=== PATIENT | male | born 1960 | race Caucasian/White ===

== ENCOUNTER 2016-08-09 08:00 | Inpatient (IN) | payer OTHER ==
[~2016-08-09] VITALS: Ht 182.9 cm; Wt 119.8 kg
[2016-08-09] MEDS ORDERED: FUROSEMIDE20 MG PO (13:46)
[2016-08-09] MEDS ORDERED: ZESTORETIC 20/21 TAB PO (13:46)
[2016-08-09] MEDS ORDERED: BAYER ASPIRIN325 MG PO (13:47)
[2016-08-09] MEDS ORDERED: GLUCOPHAGE500 MG PO (13:48)
[2016-08-09 13:55] VITALS: BP 153/85; BMI 37.4
--- NOTE | 2016-08-09 14:39 | NUR ---
SPOKE WITH DR TAVERA, EXPLAINED TO HIM WHAT IS GOING ON WITH PATIENTS VISION. HE STATED THAT WITH THE WAY IT IS PRESENTING IT IS AN EYE THING AND NOT A BRAIN THING. HIS RECOMMENDATION WAS THAT AN OPTHAMOLOGIST BE CONSULTED.
[2016-08-09 15:01] LABS: BASOPHILS 0.2 % (0.0-2.0); EOSINOPHILS 0.2 % (0-7); HEMATOCRIT 57.3 % (42.0-54.0); IMMATURE GRANULOCYTES 0.4 % (0-5); LYMPHOCYTES 16.4 % (15-50); MCHC 34.9 g/dL (31.0-37.0); MCV 88.8 fL (80.0-100.0); MEAN PLATELET VOLUME 10.1 fL (7.4-10.4); MONOCYTES 3.9 % (2-11); NEUTROPHILS 78.9 % (40-80); PLATELET COUNT 205 10x3/uL (130-400); RBC 6.45 10x6/uL (4.20-6.10); RDW 16.3 % (11.5-14.5); WBC 12.9 10x3/uL (4.8-10.8)
[2016-08-09 15:22] LABS: ALBUMIN 3.5 g/dL (3.4-5.0); ANION GAP 12.8 mmol/L (8-16); BILIRUBIN - TOTAL 0.5 mg/dL (0.2-1.3); CALCIUM 9.5 mg/dL (8.5-10.1); CARBON DIOXIDE 30.4 mmol/L (21.0-32.0); CREATININE - SERUM 1.2 mg/dL (0.6-1.3); POTASSIUM - SERUM 4.2 mmol/L (3.5-5.1); PROTEIN - SERUM 6.8 g/dL (6.4-8.2)
--- NOTE | 2016-08-09 16:55 | NUR ---
PATIENTS BROUGHT A DIFFUSER FROM HOME AND HAS IT PLUGGED INTO THE WALL. EXPLAINED THAT THOSE WERE NOT ALLOWED HERE IN THE HOSPITAL. SHE GOT UPSET, QUESTIONING WHY HER COMPUTER WAS BUT THE DIFFUSER WAS NOT. EXPLAINED THAT I DID NOT MAKE THE RULES, I JUST NEEDED TO INFORCE THEM. EXPLAINED THAT I WOULD BE GLAD TO HAVE ENGINEERING COME UP AND TALK WITH HER ABOUT IT. SHE SLAMMED HER COMPUTER CLOSED AND THEN SLAMMED IT DOWN ON THE COUNTER BY THE SINK. JUST TO NOTE, THE SMELL COMING OUT OF THE DIFFUSER IS VERY NAUSEATING. THE TECH FROM MRI WAS NOT EVEN ABLE TO STAY IN THE ROOM TO GET THE PATIENT READY FOR TRANSPORT SECONDARY TO THE SMELL. THIS SITUTATION WAS EXPLAINED TO THE TERRAZZO TILE SETTER OPAL PORTILLO.
--- NOTE | 2016-08-09 19:30 | NUR ---
ASSESSMENT COMPLETE, RESP UNLAB RT HAND SL INTACT WITH NO R/S NOTED AT SITE. ACTIVITY RENE. UP AD PADMAJA. HOME DIFFUSOR NOT PLUGGED IN AT THIS TIME. CO PAT BUT DOES NOT WANT PAIN MEDICATION. HOB UP SR UP X2, C/L IN REACH. AT BEDSIDE FOR NIGHT. WANTING TO TALK TO BUSINESS LAWYER, INFORMATION PASSED ON TO JUANITO KRAUS COAGULATION OPERATOR. CONTINUE TO MONITOR.
--- NOTE | 2016-08-09 19:45 | NUR ---
RECEIVED NEW ORDERS FOR S/S INSULIN AND TESSALON PEARLS FOR COUGHING.
[2016-08-09 20:53] VITALS: BP 158/83
--- NOTE | 2016-08-09 21:55 | NUR ---
FSBS"164" REFUSING S/S INSULIN, TESSALON MARIAJOSE 100MG GIVEN FOR C/O COUGHING. CONTINUE TO AWAIT YARDER PUNCHER. C/L IN REACH.
[2016-08-10 00:54] VITALS: BP 162/72
--- NOTE | 2016-08-10 04:05 | NUR ---
EYES CLOSED, RESP EVEN AND UNLAB WITH NO S/S OF ACUTE DISTRESS NOTED. C/L IN REACH.
[2016-08-10 05:34] VITALS: BP 169/93
[2016-08-10 06:10] LABS: BASOPHILS 0.2 % (0.0-2.0); EOSINOPHILS 0.6 % (0-7); HEMATOCRIT 56.2 % (42.0-54.0); HEMOGLOBIN 19.6 g/dL (13.5-17.5); IMMATURE GRANULOCYTES 0.3 % (0-5); LYMPHOCYTES 18.5 % (15-50); MCH 30.7 pg (26.0-34.0); MCHC 34.9 g/dL (31.0-37.0); MCV 88.1 fL (80.0-100.0); MONOCYTES 4.6 % (2-11); NEUTROPHILS 75.8 % (40-80); PLATELET COUNT 207 10x3/uL (130-400); RBC 6.38 10x6/uL (4.20-6.10); RDW 15.8 % (11.5-14.5)
[2016-08-10 06:33] LABS: ALBUMIN 3.3 g/dL (3.4-5.0); ALKALINE PHOSPHATASE 75 U/L (46-116); ALT (SGPT) 13 U/L (10-68); CALC OSMOLALITY 273 mosm/kg (275-300); CALCIUM 8.8 mg/dL (8.5-10.1); CARBON DIOXIDE 27.7 mmol/L (21.0-32.0); CHLORIDE - SERUM 98 mmol/L (98-107); CREATININE - SERUM 0.9 mg/dL (0.6-1.3); GLUCOSE 193 mg/dL (74-106); PROTEIN - SERUM 7.1 g/dL (6.4-8.2); SODIUM 135 mmol/L (136-145); UREA NITROGEN 11 mg/dL (7-18); eGFR NON AFRICAN AMERICAN > 90 mL/min (90-120)
[2016-08-10 06:34] LABS: POTASSIUM - SERUM 3.5 mmol/L (3.5-5.1)
--- NOTE | 2016-08-10 07:59 | NUR ---
0745-PATIENT IS SITTING ON SIDE OF BED WITH AT BEDSIDE. IS UPSET AND TALKING TO NIGHT NURSE ROBERT. ROBERT IS EXPLAINING TO HER WHY THE PATIENT IS NOT GETTING HIS METFORMIN R/T MRI WITH [facility] YESTERDAY AND THE POSSIBLE DAMAGE IT CAN DO TO THE KIDNEYS. STATES THAT NO ONE TOLD HER THIS AND THE PATIENT STATES THAT HE WAS TOLD YESTERDAY ABOUT THIS. ON ROOM AIR,. SALINE LOCK SEEN TO RIGHT HAND. C/O OF SLIGHT SPOTS SEEN TO VISION FIELD. WILL CONTINUE TO MONITOR. 0800-DR TAVERA HERE TO SEE PATIENT.
--- NOTE | 2016-08-10 08:11 | NUR ---
NEW ORDER FOR VICKI RECEIVED FROM DR TAVERA.
[2016-08-10 09:12] VITALS: BP 183/103
--- NOTE | 2016-08-10 10:32 | NUR ---
BANDAR, DOCUMENT MANAGEMENT CONSULTANT IS IN WITH LAB FOR DRAWING OF 1 UNIT OF BLOOD FROM PATIENT ORDERED PER DR GONZALEZ. WILL CONTINUE TO MONITOR.
--- NOTE | 2016-08-10 10:42 | NUR ---
LAB HERE TO DO THERAPUTIC PHLEOBOTOMY. VS PRE 181/109 P-77 R-24 O2 94. ROOM AIR. PROCEDURE EXPLAINED TO PT AND FAMILY. PT SIGNED CONSENT. COMMERCIAL REPORTER INJECTED 16 GA NEEDLE IN L AC. BLOOD IMMMEDIATELY FLOWED. VS @ 5 MINS- 186/116 78 R 24 PATIENT RENE WELL PROCEDURE ENDED @ 1035. POST PROCEDURE VS: 178/107 P-78 R-24 02 96. PATIENT INSTRUCTED TO CALL PRIOR TO AMBULATING. RENE PROCEDURE WELL.
[2016-08-10 12:15] VITALS: BP 148/81
[2016-08-10 14:47] VITALS: Ht 182.9 cm; Wt 119.8 kg
--- NOTE | 2016-08-10 15:36 | NUR ---
TO MRI VIA WHEELCHIAR.
--- NOTE | 2016-08-10 16:23 | EC ---
PATIENT:LINDA GARCIA DATE OF SERVICE: 08/09/16 SEX: M MEDICAL RECORD: [id number] DATE OF : 56 LOCATION:D.M2 D.213 AGE OF PATIENT: 56 ADMISSION DATE: 08/09/16 REFERRING PHYSICIAN: INTERPRETING PHYSICIAN: RAY RODRIGUEZ MD ECHOCARDIOGRAM REPORT ECHO CHARGES 4 ECHO COMPLETE CLINICAL DIAGNOSIS: R SUPPLY ASSISTANT INFARCT/ ASSESS FOR CLOTS HX OF HTN/DM ECHOCARDIOGRAPHIC MEASUREMENTS (adult normal given) AC root (d.<3.7cm) 4.8 LV Septum d (<1.2 cm> 1.4 Valve Excursion 2.4 LV Septum (systole) 1.7 Left Atria (s.<4.0cm> 3.6 LVPW d(<1.2cm) 1.9 RV (d.<2.3cm) 4.0 LVPW (sytole) 2.1 LV diastole(<5.6CM) 5.8 MV E-F(>70mm/sec) LV systole 4.5 LVOT Diameter 2.6 MV exc.(>10mm) 1.9 Est.ejection fraction (50-75%) Pericardial Effusion N DOPPLER: LVIT A 86.0 E 68.0 LA RVSP 21 LVOT 107 AOP1/2T Asc. Ao 136 RVOT 96 RA PA 128 AV Gradient Peak 7.42 AV Mean 3.86 AV Area 5.3 MV Gradient Peak 4.4 MV Mean 1.92 MV Area COMMENTS: Mineral Engineer: Julian TOLEDO Practice Or Student Teacher:Julian Odell TAPE# PACS DATE OF SERVICE: 08/10/2016 Echocardiogram FINDINGS: 1. Left ventricular chamber size is within normal limits. Left ventricular systolic function is normal. Overall ejection fraction estimated at 55%. 2. Left atrium is within normal limits at 3.6 cm. Right atrium and right ventricular chamber sizes are mildly dilated. 3. Valvular structures have normal structure and motion. ECHOCARDIOGRAM REPORT [id number] LINDA GARCIA 4. Doppler interrogation only reveals mild tricuspid regurgitation. No other valvular insufficiency or stenosis. 5. No cardiac source of neurologic emboli. TRANSINT:[id number] Voice Confirmation ID: [id number] DOCUMENT ID: [id number] RAY RODRIGUEZ MD at 2331 CC: [id number] DICTATION DATE: 08/10/16 1316 MANAGER SPRING: 08/10/16 1339 ADM IN [facility] [address] [id number]
--- NOTE | 2016-08-10 19:26 | NUR ---
PATIENT DENIES ANY NEEDS. TOLERATING HIS DIET ALONG WITH HIS INSULIN. AT BEDSIDE. WILL CONTINUE TO MONITOR.
[2016-08-11 02:28] VITALS: BP 127/76
--- NOTE | 2016-08-11 02:39 | NUR ---
PT RESTING WELL WITHOUT C/O OR DISTRESS NOTED.
[2016-08-11 05:46] LABS: BASOPHILS 0.2 % (0.0-2.0); EOSINOPHILS 1.2 % (0-7); HEMOGLOBIN 18.9 g/dL (13.5-17.5); IMMATURE GRANULOCYTES 0.3 % (0-5); LYMPHOCYTES 21.3 % (15-50); MCH 30.9 pg (26.0-34.0); MCV 88.2 fL (80.0-100.0); MEAN PLATELET VOLUME 10.2 fL (7.4-10.4); PLATELET COUNT 195 10x3/uL (130-400); RBC 6.12 10x6/uL (4.20-6.10); RDW 16.3 % (11.5-14.5); WBC 12.1 10x3/uL (4.8-10.8)
[2016-08-11 06:05] LABS: CALC OSMOLALITY 275 mosm/kg (275-300); CALCIUM 9.2 mg/dL (8.5-10.1); CHLORIDE - SERUM 98 mmol/L (98-107); CREATININE - SERUM 0.8 mg/dL (0.6-1.3); GLUCOSE 171 mg/dL (74-106); POTASSIUM - SERUM 3.6 mmol/L (3.5-5.1); SODIUM 136 mmol/L (136-145); UREA NITROGEN 13 mg/dL (7-18); eGFR NON AFRICAN AMERICAN > 90 mL/min (90-120)
--- NOTE | 2016-08-11 07:43 | NUR ---
0700-PATIENT RESTING ON LEFT SIDE, RESP ARE EVEN AND NON LABORED. [facility] AND REPORTS THAT HE HAD A GOOD NIGHT. ON ROOM AIR. WILL CONTINUE TO MONITOR.
--- NOTE | 2016-08-11 07:44 | NUR ---
0729-COMPLAINTS OF NAUSEA- ZOFRAN GIVEN. WILL MONITOR.
[2016-08-11 08:10] VITALS: BP 138/76
[2016-08-11 12:14] VITALS: BP 116/73
--- NOTE | 2016-08-11 12:18 | NUR ---
LAB HERE TO DRAW THERAPUETIC PHLEBOTOMY. VS GOOD PRE PROCEDURE. PROCEDURE DONE. PATIENT TOLERATED WELL.
--- NOTE | 2016-08-11 12:19 | NUR ---
* Is the patient Alert and Oriented? Yes 0 * How many steps to enter\exit or inside your home? RAMP 0 * PCP DR. MODI 0 * Pharmacy [facility] 0 * Preadmission Environment Home with Family 0 * ADLs Independent 0 * Equipment CPAP 0 * Other Equipment CPAP PROVIDED BY [facility] 0 * List name and contact numbers for known caregivers / representatives who currently or will assist patient after discharge: SPOUSE: SAMMIE [phone] DAUGTHER: SUKI [phone] * Community resources currently utilized None 0 * Additional services required to return to the preadmission environment? No 0 * Can the patient safely return to the preadmission environment? Yes 0 * Has this patient been hospitalized within the prior 30 days at any hospital? No PATIENT IS SITTING ON SIDE OF BED. PATIENT STATES HIS PLAN IS TO RETURN HOME. HE DOES NOT FEEL HE NEEDS REHAB. PATIENT WAS LIVING AT HOME WITH HIS , SAMMIE, AND INDEPENDENT IN ALL ADL'S. PATIENT'S PCP IS DR. MODI. PATIENT GETS HIS MEDS FROM ANY AT THE [facility]. PATIENT HAS A CPAP AT HOME PROVIDED BY [facility]. HE HAS A GLUCOMETER. PATIENT DENIES EVER HAVING HOME HEALTH. THERE IS A RAMP TO ENTER HIS HOME. PATIENT DENIES ANY DISCHARGE NEEDS. HE STATES HE WAS AN EVERYDAY SMOKER BUT HAS QUIT. HE STATES HE DOES NOT NEED ANY ASSISTANCE. I SUGGESTED THAT IF HE SHOULD NEED ASSISTANCE HE SHOULD TALK WITH HIS PCP AT FOLLOW UP.
[2016-08-11 13:03] LABS: CHOL - HDL RATIO 4.1 ratio (2.3-4.9); LDL-HDL RATIO 2.6 ratio (1.5-3.5)
--- NOTE | 2016-08-11 17:30 | NUR ---
DENIES NEEDS AT PRESENT TIME. AT BEDSIDE. WILL CONTINUE TO MONITOR.
--- NOTE | 2016-08-11 19:40 | NUR ---
ALERT/AWAKE DENIES PAIN OR ANY NEEDS. IV IN L HAND INTACT SL. SHIFT ASSESSMENTS COMPLETED. ORIENTED TO CALL LIGHT FOR ANY NEEDS. HIS IS PRESENT IN ROOM.
[2016-08-11 20:00] VITALS: BP 117/63
[2016-08-12 04:00] VITALS: BP 101/71
--- NOTE | 2016-08-12 05:07 | NUR ---
AWAKE DENIES ANY NEEDS OR DISCOMFORTS.
[2016-08-12 06:32] LABS: BASOPHILS 0.2 % (0.0-2.0); EOSINOPHILS 1.3 % (0-7); HEMOGLOBIN 18.4 g/dL (13.5-17.5); IMMATURE GRANULOCYTES 0.5 % (0-5); LYMPHOCYTES 27.7 % (15-50); MCH 30.9 pg (26.0-34.0); MCHC 34.7 g/dL (31.0-37.0); MCV 88.9 fL (80.0-100.0); MONOCYTES 5.2 % (2-11); NEUTROPHILS 65.1 % (40-80); PLATELET COUNT 212 10x3/uL (130-400); RBC 5.96 10x6/uL (4.20-6.10); RDW 16.1 % (11.5-14.5); WBC 13.6 10x3/uL (4.8-10.8)
[2016-08-12 06:45] LABS: CALC OSMOLALITY 274 mosm/kg (275-300); CALCIUM 8.4 mg/dL (8.5-10.1); CARBON DIOXIDE 29.4 mmol/L (21.0-32.0); CHLORIDE - SERUM 99 mmol/L (98-107); CREATININE - SERUM 0.9 mg/dL (0.6-1.3); GLUCOSE 161 mg/dL (74-106); POTASSIUM - SERUM 3.8 mmol/L (3.5-5.1); SODIUM 136 mmol/L (136-145); UREA NITROGEN 13 mg/dL (7-18); eGFR NON AFRICAN AMERICAN > 90 mL/min (90-120)
--- NOTE | 2016-08-12 07:20 | NUR ---
RECEIVED REPORT. ASSUMED CARE OF PATIENT. SITTING UP TO CHAIR AT BEDSIDE. CALL LIGHT WITHIN REACH. FEMALE VISITOR AT BEDSIDE. PATIENT DENIES PAIN. PATIENT REPORTS DISTURBANCE OF VISUAL FIELD AT 10-11 OF CLOCK FIGURE. PATIENT HAS EQUAL CITY SANITARIAN, ALERT/ORIENTED, PUPILS PERRLA. NO ACUTE DISTRESS. RESP EVEN AND UNLABORED.
[2016-08-12 08:12] VITALS: BP 128/83
--- NOTE | 2016-08-12 11:50 | NUR ---
FSBS 167. 2 UNITS HUMULIN INSULIN ADMINISTERED PER SLIDING SCALE AT THIS TIME. NO DISTRESS. FRESH ICE H2O PROVIDED.
[2016-08-12 12:03] VITALS: BP 120/77
[2016-08-12 16:22] VITALS: BP 124/74
--- NOTE | 2016-08-12 16:30 | NUR ---
FSBS 167. 2 UNITS HUMALIN ADMINISTERED PER SLIDING SCALE. NO DISTRESS.
[2016-08-12 21:48] VITALS: BP 101/68
--- NOTE | 2016-08-12 22:16 | NUR ---
INITIAL ROUNDS COMPLETED AT 1910 HRS. PT DNEID ANY DISCOMFORT. ASSESSMENT COMPLETED AT 2005 HRS. VSS. ALERT AND ORIENTED TO PERSON, PLACE AND TIME. HAND AND FOOT STRENGTH EQUAL AND STRONG. SHERRI. PT STATES THERE IS A BLACK SPOT IN HIS VISION FROM 10-11 IF VISION IS ASSESSED BY A VISUAL CLOCK. IV TO R HAND SL. PM FSBS 214. 4 UNITS REG INSULIN GIVEN SUB-Q TO UPPER L ARM PER S/S. PT CURERNTLY WATCHING TV WITH AT BEDSIDE. SR UP X2, CALL LIGHT WITHIN REACH.
[2016-08-13 00:30] VITALS: BP 106/63
--- NOTE | 2016-08-13 00:34 | NUR ---
PT AWAKE; DENIES ANY DISCOMFORT. NO CHANGE IN NEURO STATUS NOTED. AT BEDSIDE.
--- NOTE | 2016-08-13 02:17 | NUR ---
PT RESTING WITH EYES CLOSED. RESP EVEN AND REGULAR. SR UP X2, CALL LIGHT WITHIN REACH.
[2016-08-13 04:30] VITALS: BP 146/93
--- NOTE | 2016-08-13 04:46 | NUR ---
NO CHANGE IN NEURO STATUS NOTED. WILL CONTINUE TO MONITOR.
--- NOTE | 2016-08-13 06:46 | NUR ---
VSS THROUGHOUT NIGHT. AM FSBS 157. NO CHANGES TO NEURO STATUS NOTED. NEEDS MET; WILL CONTINUE TO MONITOR.
[2016-08-13 07:03] LABS: BASOPHILS 0.3 % (0.0-2.0); EOSINOPHILS 1.5 % (0-7); HEMOGLOBIN 17.2 g/dL (13.5-17.5); IMMATURE GRANULOCYTES 0.5 % (0-5); LYMPHOCYTES 27.2 % (15-50); MCH 30.8 pg (26.0-34.0); MCHC 34.4 g/dL (31.0-37.0); MCV 89.4 fL (80.0-100.0); MEAN PLATELET VOLUME 10.1 fL (7.4-10.4); MONOCYTES 4.6 % (2-11); NEUTROPHILS 65.9 % (40-80); PLATELET COUNT 205 10x3/uL (130-400); RBC 5.59 10x6/uL (4.20-6.10); RDW 15.9 % (11.5-14.5); WBC 12.3 10x3/uL (4.8-10.8)
--- NOTE | 2016-08-13 07:20 | NUR ---
RECEIVED REPORT. ASSUMED CARE OF PATIENT. CALL LIGHT WITHIN REACH. AWAKE, SITTING UP IN BED. AT BEDSIDE. DENIES NEEDS. STATES HE FEELS FINE THIS AM BUT CONTINUES TO HAVE THE HOLE IN VISION AT 10/11 OCLOCK. RESP EVEN AND UNLABORED. NO DISTRESS.
[2016-08-13 07:25] LABS: CALC OSMOLALITY 283 mosm/kg (275-300); CALCIUM 8.8 mg/dL (8.5-10.1); CARBON DIOXIDE 27.6 mmol/L (21.0-32.0); CHLORIDE - SERUM 104 mmol/L (98-107); CREATININE - SERUM 0.9 mg/dL (0.6-1.3); GLUCOSE 166 mg/dL (74-106); POTASSIUM - SERUM 4.3 mmol/L (3.5-5.1); SODIUM 140 mmol/L (136-145); UREA NITROGEN 14 mg/dL (7-18); eGFR NON AFRICAN AMERICAN > 90 mL/min (90-120)
[2016-08-13 08:01] VITALS: BP 135/82
--- NOTE | 2016-08-13 11:55 | NUR ---
FSBS 177. 2 UNITS HUMULIN INSULIN PROVIDED PER SLIDING SCALE. NO DISTRESS. SITTING UP TO CHAIR AT BEDSIDE.
[2016-08-13 12:00] VITALS: BP 124/85
--- NOTE | 2016-08-13 14:01 | NUR ---
1350 20 GAUGE IV REMOVED FROM RIGHT HAND. NO BLEEDING FROM SITE. 2X2 APPLIED AND SECRUED WITH TAPE. CATHETER TIP INTACT. IV D/C'D DUE TO PATIENT IS DISCHARGING TO HOME. 1400 PATIENT GIVEN DISCHARGE INSTRUCTIONS. VERBALIZED ALL UNDERSTANDING OF INSTRUCTIONS PROVIDED AND HAD NO QUESTIONS FOR THIS CIVIL ENGINEERING DESIGNER.
--- NOTE | 2016-08-13 14:02 | NUR ---
PATIENT CHOSE TO AMBULATE OFF UNIT WITH HIS . PATIENT LEFT UNIT WITH ALL PERSONAL BELONGINGS. NO DISTRESS UPON LEAVING UNIT.
--- NOTE | 2016-09-05 10:28 | DS ---
PATIENT:LINDA GARCIA :56 MEDICAL RECORD: [id number] DISCHARGE SUMMARY ADMISSION DATE: 08/09/16 DISCHARGE DATE: 08/13/16 DATE OF ADMISSION: 08/10/2016. DATE OF DISCHARGE: 08/13/2016. DISCHARGE DIAGNOSES: 1. Hemorrhagic cerebrovascular accident. 2. Acute vision loss. 3. Leukocytosis. 4. Hypertensive urgency. 5. Nicotine dependency. 6. Diabetes mellitus. 7. Polycythemia. CONSULTS: 1. Dr. Mitchell. 2. Dr. Zuniga. IMAGIN. MRI of the Brain with and without Gadolinium. It showed an area of hemorrhagic infarct in the right occipital lobe involving the visual cortex. There was also mild findings of chronic small vessel ischemia. 2. A 2D Echo, which showed an EF of 55% with mild tricuspid regurgitation. 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 He was also noted to be polycythemic and Dr. Zuniga was consulted. He underwent 2 phlebotomies during his hospitalization. He underwent a 2D echo, see those findings above. His clinical condition did improve. He was thought to be stable to discharge to home. He was to follow up in the outpatient setting. He was to follow up with Dr. Zuniga the proceeding week for a CBC. See med rec. TRANSINT:[id number] Voice Confirmation ID: [id number] DOCUMENT ID: [id number] Dictated By: DAPHNE BAUTISTA I have interviewed/examined the above patient and agree with these documented findings. NELDA HYLTON MD at 1028 at 0948 CC: [id number] DICTATION DATE: 08/31/16 0833 LAMP REPLACER: 08/31/16 0930 DIS IN 08/13/16 [place] [id number]
== END 2016-08-13 15:30 | disposition home or self-care (01) | DRG 65 ==
LOC: D.M2 08:00 → UNDOADMOB 12:55 → D.M2 08-10 16:57
PROVIDERS: Family Medicine Adult Medicine; ADMIT Family Medicine
PROC: 059 Upper Veins, Drainage (ICD-10-PCS; principal; 2016-08-10)
PROC: 059 Upper Veins, Drainage (ICD-10-PCS; 2016-08-11)
DX: I61.1 Nontraumatic intracerebral hemorrhage in hemisphere, cortical (principal); F17.203 Nicotine dependence unspecified, with withdrawal; I16.0 Hypertensive urgency; H54.7 Unspecified visual loss; D75.1 Secondary polycythemia; E11.9 Type 2 diabetes mellitus without complications; D72.829 Elevated white blood cell count, unspecified